=== PATIENT | female | born 1940 | race Caucasian/White ===

== ENCOUNTER 2017-12-25 05:35 | Inpatient (IN) | payer MEDICARE, BC ==
[2017-12-25] MEDS ORDERED: SODIUM CL BACTERIOSTATIC 30 ML INJ (06:40)
[2017-12-25] MEDS ORDERED: OXYCODONE/ACETAMINOPHEN (5/325) TAB PO ×2 (07:00)
[2017-12-25] MEDS ORDERED: TRIMETHOBENZAMIDE 100 MG/ML VIAL IM (07:00)
[2017-12-25] MEDS ORDERED: EPHEDrine SULFATE 50 MG/5 ML SYG IV (07:00)
[2017-12-25] MEDS: LACTATED RINGER'S 1L BAG IV* (07:00)
[2017-12-25] MEDS ORDERED: IPRATROPIUM (NEB) 0.5 MG/2.5 ML AMP HHN (07:00)
[2017-12-25] MEDS ORDERED: LABETALOL HCL 20MG INJ IV (07:00)
[2017-12-25] MEDS ORDERED: FENTAnyl 50 MCG/ML VIAL IV ×3 (07:00)
[2017-12-25] MEDS ORDERED: HYDROmorphONE 1 MG/5 ML IV SYRINGE IV ×3 (07:00→13:58)
[2017-12-25] MEDS: CEFAZOLIN 2 GM/50 ML (PMX) 50 ML IVPB (07:00)
[2017-12-25] MEDS ORDERED: MIDAZOLAM 1 MG/ML 2 ML INJ IV (07:00)
[2017-12-25] MEDS ORDERED: ALBUTEROL 0.083% (NEB) 2.5 MG/3 ML AMP HHN (07:00)
[2017-12-25] MEDS ORDERED: ROCURONIUM 50 MG INJ ×2 (07:00→07:09)
[2017-12-25] MEDS ORDERED: hydrALAzine 20 MG INJ IV (07:00)
[2017-12-25] MEDS ORDERED: MEPERIDINE 25 MG INJ IV (07:00)
[2017-12-25] MEDS ORDERED: GLYCOPYRROLATE 0.4 MG INJ (07:09)
[2017-12-25] MEDS ORDERED: NEOSTIGMINE 3 MG/3 ML SYRINGE (07:09)
[2017-12-25] MEDS ORDERED: CEFAZOLIN 1 GM INJ (07:09)
[2017-12-25] MEDS ORDERED: PROPOFOL 20 ML (07:09)
[2017-12-25] MEDS ORDERED: ONDANSETRON 4 MG INJ (07:12)
[2017-12-25] MEDS ORDERED: MIDAZOLAM 1 MG/ML 2 ML INJ (07:12)
[2017-12-25] MEDS ORDERED: DEXAMETHASONE 4 MG/ML 1 ML INJ (07:13)
[2017-12-25] MEDS ORDERED: DIPHENHYDRAMINE 50 MG INJ IV (07:30)
[2017-12-25] MEDS ORDERED: CEPASTAT LOZENGE MT (07:30)
[2017-12-25] MEDS ORDERED: ACETAMINOPHEN 325 MG TAB PO (07:30)
[2017-12-25] MEDS ORDERED: NALOXONE (0.4 MG/ML) INJ IV (07:30)
[2017-12-25] MEDS ORDERED: HYDROmorphONE 0.5 MG/0.5 ML SYG IV (07:30)
[2017-12-25] MEDS ORDERED: ZOLPIDEM 5 MG TAB PO (07:30)
[2017-12-25] MEDS ORDERED: ONDANSETRON 4 MG INJ IV (07:30)
[2017-12-25] MEDS ORDERED: hydrALAzine 20 MG INJ (08:04)
[2017-12-25] MEDS: BUPIVACAINE 0.25%/EPI (MDV) 50 ML VIAL INJ (08:13)
[2017-12-25] MEDS: CEFAZOLIN 1 GM INJ (08:46)
[2017-12-25] MEDS: DOCUSATE SODIUM 100 MG CAP PO ×2 (09:00→20:32)
[2017-12-25] MEDS: THROMBIN 5000 UNIT VIAL ×3 (09:17→11:04)
[2017-12-25] MEDS: CA CHLORIDE 10% 10 ML SYRINGE (09:18)
[2017-12-25] MEDS: HEPARIN 1000 UNITS/ML 10 ML INJ (09:20)
[2017-12-25] MEDS ORDERED: PHENYLephrine (100 MCG/ML) 5ML SYG ×2 (10:22→12:25)
[2017-12-25] MEDS: SURGIFOAM POWDER 1 GM KIT ×4 (10:41→11:04)
[2017-12-25] MEDS ORDERED: ALBUMIN HUMAN 5% 250 ML (11:24)
[2017-12-25] MEDS: BUPIVACAINE 0.25% (MPF) 30 ML INJ (12:31)
[2017-12-25] MEDS: FENTAnyl 50 MCG/ML VIAL (12:32)
[2017-12-25] MEDS ORDERED: ESTRADIOL 0.1 MG/24 HR PATCH TRANSDERM (14:00)
[2017-12-25] MEDS: HYDROmorphONE 1 MG/5 ML IV SYRINGE IV ×2 (14:03→15:09)
[2017-12-25] MEDS: ONDANSETRON 4 MG INJ IV (14:04)
[2017-12-25] MEDS: DIPHENHYDRAMINE 50 MG INJ IV (14:04)
[2017-12-25] MEDS: HYDROmorphONE 0.2 MG/ML PCA IV (14:10)
[2017-12-25] MEDS: CEFAZOLIN 1 GM/50 ML (PMX) 50 ML IVPB ×2 (16:07→22:07)
[2017-12-25] MEDS: D5W-0.45 NACL + KCL 20 MEQ 1,000 ML IV ×2 (16:08→16:40)
[2017-12-25] MEDS: ATORVASTATIN 10 MG TAB PO (20:32)
[2017-12-25] MEDS: GABAPENTIN 300 MG CAP PO (20:32)
[2017-12-25] MEDS: HYDROXYUREA 500 MG CAP PO (20:35)
[2017-12-25] MEDS: CYCLOSPORINE 0.05% OPH DROPERETTE BOTH EYES (21:00)
[2017-12-26] MEDS: D5W-0.45 NACL + KCL 20 MEQ 1,000 ML IV ×3 (03:06→13:06)
[2017-12-26 05:09] LABS: ADD MAN DIFF? NO
[2017-12-26 05:17] LABS: BASOPHILS % 0.1 % (0.0-2.0); EOSINOPHILS % 0.1 % (0.0-7.0); HEMATOCRIT 33.3 % (37.0-47.0); HEMOGLOBIN 10.7 g/dl (12.0-16.0); LYMPHOCYTES # 0.7 10^3/ul (0.8-2.9); LYMPHOCYTES % 5.2 % (15.0-51.0); MEAN CORPUSCULAR HEMOGLOBIN 33.3 pg (29.0-33.0); MEAN CORPUSCULAR HGB CONC 32.1 g/dl (32.0-37.0); MEAN CORPUSCULAR VOLUME 103.7 fl (82.0-101.0); MEAN PLATELET VOLUME 10.6 fl (7.4-10.4); MONOCYTE # 1.5 10^3/ul (0.3-0.9); MONOCYTES % 10.3 % (0.0-11.0); NEUTROPHILS % 83.8 % (39.0-77.0); PLATELET COUNT 216 10^3/UL (140-415); RED BLOOD COUNT 3.21 10^6/ul (4.20-5.40); RED CELL DISTRIBUTION WIDTH 17.3 % (11.5-14.5)
[2017-12-26 05:17] LABS: WHITE BLOOD COUNT 14.3 10^3/ul (4.8-10.8)
[2017-12-26 05:30] LABS: ANION GAP 7 (5-13); BLOOD UREA NITROGEN 11 mg/dl (7-20); CALCIUM 9.1 mg/dl (8.4-10.2); CARBON DIOXIDE 22 mmol/L (21-31); CHLORIDE 109 mmol/L (97-110); CREATININE 0.52 mg/dl (0.44-1.00); GLUCOSE 100 mg/dl (70-220); MAGNESIUM 1.7 mg/dl (1.7-2.5); POTASSIUM 4.4 mmol/L (3.5-5.1); SODIUM 138 mmol/L (135-144)
[2017-12-26] MEDS: CEFAZOLIN 1 GM/50 ML (PMX) 50 ML IVPB (06:04)
[2017-12-26] MEDS: PANTOPRAZOLE 40 MG INJ IV (06:04)
[2017-12-26] MEDS: LEVOTHYROXINE 100 MCG TAB PO (06:04)
[2017-12-26] MEDS: BUPROPION (SR) 150 MG TAB PO (09:44)
[2017-12-26] MEDS: ASPIRIN (EC) 81 MG TAB PO (09:45)
[2017-12-26] MEDS: DOCUSATE SODIUM 100 MG CAP PO ×2 (09:45→21:08)
[2017-12-26] MEDS: GABAPENTIN 300 MG CAP PO ×3 (09:45→21:06)
[2017-12-26] MEDS: CYCLOSPORINE 0.05% OPH DROPERETTE BOTH EYES ×2 (09:47→21:11)
[2017-12-26] MEDS: HYDROXYUREA 500 MG CAP PO ×2 (09:47→21:08)
[2017-12-26] MEDS: AL HYDROX/MG HYDROX/SIMETH 30 ML CUP PO (14:00)
[2017-12-26] MEDS: CARISOPRODOL 350 MG TAB PO (17:17)
[2017-12-26] MEDS: ATORVASTATIN 10 MG TAB PO (21:06)
[2017-12-27] MEDS: CARISOPRODOL 350 MG TAB PO (00:18)
[2017-12-27] MEDS: HYDROmorphONE 0.2 MG/ML PCA IV (00:46)
[2017-12-27] MEDS: D5W-0.45 NACL + KCL 20 MEQ 1,000 ML IV ×2 (05:00→15:06)
[2017-12-27 05:29] LABS: ADD MAN DIFF? NO
[2017-12-27] MEDS: PANTOPRAZOLE 40 MG INJ IV (05:39)
[2017-12-27] MEDS: LEVOTHYROXINE 100 MCG TAB PO (05:39)
[2017-12-27 05:42] LABS: WHITE BLOOD COUNT 11.2 10^3/ul (4.8-10.8)
[2017-12-27 05:42] LABS: ABNORMAL IP MESSAGE 1; BASOPHILS % 0.3 % (0.0-2.0); EOSINOPHILS # 0.1 10^3/ul (0.0-0.5); EOSINOPHILS % 0.7 % (0.0-7.0); HEMATOCRIT 34.2 % (37.0-47.0); LYMPHOCYTES # 1.5 10^3/ul (0.8-2.9); LYMPHOCYTES % 13.8 % (15.0-51.0); MEAN CORPUSCULAR HEMOGLOBIN 33.2 pg (29.0-33.0); MEAN CORPUSCULAR HGB CONC 32.2 g/dl (32.0-37.0); MEAN CORPUSCULAR VOLUME 103.3 fl (82.0-101.0); MEAN PLATELET VOLUME 10.9 fl (7.4-10.4); MONOCYTE # 1.8 10^3/ul (0.3-0.9); MONOCYTES % 16.2 % (0.0-11.0); NEUTROPHIL # 7.7 10^3/ul (1.6-7.5); NEUTROPHILS % 68.6 % (39.0-77.0); PLATELET COUNT 196 10^3/UL (140-415); RED BLOOD COUNT 3.31 10^6/ul (4.20-5.40); RED CELL DISTRIBUTION WIDTH 17.3 % (11.5-14.5)
[2017-12-27 05:54] LABS: POSITIVE DIFF @See below
[2017-12-27 05:57] LABS: ANION GAP 5 (5-13); BLOOD UREA NITROGEN 16 mg/dl (7-20); CALCIUM 9.2 mg/dl (8.4-10.2); CARBON DIOXIDE 25 mmol/L (21-31); CHLORIDE 108 mmol/L (97-110); CREATININE 0.62 mg/dl (0.44-1.00); GLUCOSE 95 mg/dl (70-220); SODIUM 138 mmol/L (135-144)
[2017-12-27] MEDS: DOCUSATE SODIUM 100 MG CAP PO ×2 (09:47→20:43)
[2017-12-27] MEDS: GABAPENTIN 300 MG CAP PO ×3 (09:47→20:43)
[2017-12-27] MEDS: ASPIRIN (EC) 81 MG TAB PO (09:47)
[2017-12-27] MEDS: BUPROPION (SR) 150 MG TAB PO (09:49)
[2017-12-27] MEDS: HYDROXYUREA 500 MG CAP PO ×2 (09:49→20:44)
[2017-12-27] MEDS: OXYCODONE/ACETAMINOPHEN (10/325) TAB PO ×2 (09:50→17:09)
[2017-12-27] MEDS: CYCLOSPORINE 0.05% OPH DROPERETTE BOTH EYES ×2 (12:30→20:43)
[2017-12-27] MEDS: AL HYDROX/MG HYDROX/SIMETH 30 ML CUP PO (13:50)
[2017-12-27] MEDS: ATORVASTATIN 10 MG TAB PO (20:43)
[2017-12-28] MEDS: D5W-0.45 NACL + KCL 20 MEQ 1,000 ML IV (01:00)
[2017-12-28] MEDS: OXYCODONE/ACETAMINOPHEN (10/325) TAB PO ×3 (01:06→14:56)
[2017-12-28 05:05] LABS: ADD MAN DIFF? NO
[2017-12-28 05:07] LABS: BASOPHILS % 0.4 % (0.0-2.0); EOSINOPHILS # 0.2 10^3/ul (0.0-0.5); EOSINOPHILS % 2.2 % (0.0-7.0); HEMATOCRIT 31.9 % (37.0-47.0); HEMOGLOBIN 10.3 g/dl (12.0-16.0); LYMPHOCYTES # 1.4 10^3/ul (0.8-2.9); LYMPHOCYTES % 13.6 % (15.0-51.0); MEAN CORPUSCULAR HEMOGLOBIN 33.2 pg (29.0-33.0); MEAN CORPUSCULAR HGB CONC 32.3 g/dl (32.0-37.0); MEAN CORPUSCULAR VOLUME 102.9 fl (82.0-101.0); MEAN PLATELET VOLUME 10.9 fl (7.4-10.4); MONOCYTE # 1.4 10^3/ul (0.3-0.9); MONOCYTES % 14.3 % (0.0-11.0); NEUTROPHIL # 6.8 10^3/ul (1.6-7.5); NEUTROPHILS % 69.2 % (39.0-77.0); PLATELET COUNT 202 10^3/UL (140-415); RED CELL DISTRIBUTION WIDTH 17.2 % (11.5-14.5)
[2017-12-28 05:07] LABS: WHITE BLOOD COUNT 9.9 10^3/ul (4.8-10.8)
[2017-12-28 05:46] LABS: ANION GAP 7 (5-13); BLOOD UREA NITROGEN 12 mg/dl (7-20); CALCIUM 9.1 mg/dl (8.4-10.2); CARBON DIOXIDE 27 mmol/L (21-31); CHLORIDE 105 mmol/L (97-110); CREATININE 0.56 mg/dl (0.44-1.00); GLUCOSE 103 mg/dl (70-220); MAGNESIUM 1.9 mg/dl (1.7-2.5); SODIUM 139 mmol/L (135-144)
[2017-12-28] MEDS: LEVOTHYROXINE 100 MCG TAB PO (05:52)
[2017-12-28] MEDS: PANTOPRAZOLE 40 MG INJ IV (05:52)
[2017-12-28] MEDS: AL HYDROX/MG HYDROX/SIMETH 30 ML CUP PO ×2 (07:44→13:08)
[2017-12-28] MEDS: GABAPENTIN 300 MG CAP PO ×2 (08:34→12:10)
[2017-12-28] MEDS: BUPROPION (SR) 150 MG TAB PO (08:35)
[2017-12-28] MEDS: ASPIRIN (EC) 81 MG TAB PO (08:35)
[2017-12-28] MEDS: DOCUSATE SODIUM 100 MG CAP PO (08:35)
[2017-12-28] MEDS: HYDROXYUREA 500 MG CAP PO (08:35)
[2017-12-28] MEDS: CYCLOSPORINE 0.05% OPH DROPERETTE BOTH EYES (08:36)
[2017-12-28] MEDS: BISACODYL 10 MG SUPP PR (12:10)
== END 2017-12-28 15:30 | DRG 454 ==
LOC: REC 05:35 → MS1 16:05
PROC: 0SG10AJ Fusion of 2 or more Lumbar Vertebral Joints with Interbody Fusion Device, Posterior Approach, Anterior Column, Open Approach (ICD-10-PCS; principal; 2017-12-25 07:00)
PROC: 0SG1071 Fusion of 2 or more Lumbar Vertebral Joints with Autologous Tissue Substitute, Posterior Approach, Posterior Column, Open Approach (ICD-10-PCS; 2017-12-25 07:00)
PROC: 00NY0ZZ Release Lumbar Spinal Cord, Open Approach (ICD-10-PCS; 2017-12-25 07:00)
PROC: 0ST20ZZ Resection of Lumbar Vertebral Disc, Open Approach (ICD-10-PCS; 2017-12-25 07:00)
PROC: 01NB0ZZ Release Lumbar Nerve, Open Approach (ICD-10-PCS; 2017-12-25 07:00)
PROC: 0SP004Z Removal of Internal Fixation Device from Lumbar Vertebral Joint, Open Approach (ICD-10-PCS; 2017-12-25 07:00)
PROC: 4A11X4G Monitoring of Peripheral Nervous Electrical Activity, Intraoperative, External Approach (ICD-10-PCS; 2017-12-25 07:00)
PROC: 30233N0 Transfusion of Autologous Red Blood Cells into Peripheral Vein, Percutaneous Approach (ICD-10-PCS; 2017-12-25 07:00)
PROC: 0T9B70Z Drainage of Bladder with Drainage Device, Via Natural or Artificial Opening (ICD-10-PCS; 2017-12-25 07:26)
DX: M51.16 Intervertebral disc disorders with radiculopathy, lumbar region (principal); L10.9 Pemphigus, unspecified; D75.1 Secondary polycythemia; E78.5 Hyperlipidemia, unspecified; E03.9 Hypothyroidism, unspecified; F33.41 Major depressive disorder, recurrent, in partial remission; G89.29 Other chronic pain; M43.26 Fusion of spine, lumbar region; M43.16 Spondylolisthesis, lumbar region; M48.062 Spinal stenosis, lumbar region with neurogenic claudication; M53.2X6 Spinal instabilities, lumbar region; R14.0 Abdominal distension (gaseous); R33.9 Retention of urine, unspecified; Z96.641 Presence of right artificial hip joint; Z78.0 Asymptomatic menopausal state; Z85.820 Personal history of malignant melanoma of skin; Z90.710 Acquired absence of both cervix and uterus
CPT/HCPCS: 72110; 80048; 83735; 85025; 86850; 86900; 86901; 86999; 87086; 88300; 88304; 97116; 97161; 97530